=== PATIENT | female | born 1975 | race Caucasian/White ===

== ENCOUNTER 2016-04-04 12:58 | Emergency (ER) | payer OTHER ==
[~2016-04-04] VITALS: Ht 162.6 cm; Wt 68.0 kg
[2016-04-04 14:19] LABS: Basophils # (auto) 0 uL; Basophils % (auto) 0.2 % (0.0-2.0); Eosinophils # (auto) 0.1 uL; Eosinophils % (auto) 0.9 % (0.0-7.0); Hematocrit 37.5 % (36.0-46.0); Hemoglobin 12.3 g/dL (12.2-16.2); Lymphocytes # (auto) 1.9 uL; Lymphocytes % (auto) 33.6 % (10.0-50.0); Mean Corpuscular Hemoglobin 30.1 pg (28.0-32.0); Mean Corpuscular Hgb Conc. 32.7 g/dL (32.0-36.0); Mean Corpuscular Volume 92.2 fL (80.0-100.0); Mean Platelet Volume 7.3 fL (7.4-10.4); Monocytes # (auto) 0 uL; Monocytes % (auto) 0.6 % (0.0-12.0); Neutrophils # (auto) 3.6 uL; Neutrophils % (auto) 64.7 % (37.0-80.0); Platelet Count (auto) 156 10^3/uL (140-450); White Blood Cell 5.6 10^3/uL (4.4-10.8)
[2016-04-04 14:34] LABS: BUN/Creatinine Ratio 15.8; Calcium 8.9 mg/dL (8.5-10.1); Potassium 3.6 mmol/L (3.5-5.1)
[2016-04-04 14:37] LABS: Bilirubin, Total 0.7 mg/dL (0.2-1.0); Total Protein 7.6 g/dL (6.4-8.2)
[2016-04-04] MEDS ORDERED: SODIUM CHLORIDE 0.9% 1,000 ML IV ONE (15:23)
[2016-04-04] MEDS ORDERED: ALPRAZolam 0.5 MG TAB PO ONE (15:30)
[2016-04-04 15:40] VITALS: BP 137/85
[2016-04-04 17:51] LABS: Urine Bilirubin Negative (Negative); Urine Blood Negative /uL (Negative); Urine Color Yellow (Yellow); Urine Glucose Normal (Normal); Urine Ketone Negative (Negative); Urine Nitrite Negative (Negative); Urine RBC 1 /hpf (0 - 4); Urine Squamous Epithelial Cell FEW /hpf (<5); Urine Urobilinogen Normal (Negative)
== END 2016-04-04 17:43 | disposition home or self-care (01) ==
LOC: EDBD 12:58 → ER 13:02
DX: F43.9 Reaction to severe stress, unspecified (principal); C56.9 Malignant neoplasm of unspecified ovary; F41.9 Anxiety disorder, unspecified; R51 Headache
CPT/HCPCS: 36415; 70450; 71020; 80053; 81001; 83735; 84484; 85025; 93005; 96360; 99285; J7030